=== PATIENT | male | born 1980 | race Caucasian/White ===

== ENCOUNTER 2019-09-14 23:29 | Emergency (ER) | payer BC ==
[2019-09-14] MEDS ORDERED: DUONEB 0.5-3 MG/3 ml Neb IH ONE (23:30)
[2019-09-14] MEDS ORDERED: solu-MEDROL 125 MG IV ONE (23:53)
--- NOTE | 2019-09-14 23:54 | ERPHSYRPT ---
- History of Present Illness Time Seen by Provider: 09/14/19 23:40 Source: patient, family Patient Subjective Stated Complaint: Patient states " I have not been feeling well for couple of days." States around 1700 he became very SOB. Patient states he tried to do albuterol SVN tx but it didnt help. Patient states " I have been doing my SVN treatments about every hour to two hours and it just not getting any better". Triage Nursing Assessment: Patient arrived to ED per self. Gait steady. Patient able to answer questions appropriatley. Patient alert and orientated times 4. Lungs A/P throughout wheezy. Patient doing pursed lip breathing. Cap refill less than 3 seconds. No S/S of cynosis. Patient 02 sat upon arrival 98% room air. Patient denies chest pain. Patient denies pain or discomfort. Physician History: 39-year-old white male with history of asthma who presents with cough and wheezing and shortness of breath. Patient and his family have had similar symptoms over the last few weeks. Approximately 2 to 3 weeks ago patient completed steroid and antibiotic therapy. Symptoms recurred 2 days ago. Today , his symptoms were worsening. There is no known specific exposure to any allergens that he is aware of. Patient denies fever, he denies chest pain, patient does not smoke and he has no known cardiac history.. Room air oxygenation is 98%. Timing/Duration: day(s) (2) Activities at Onset: activity Severity of Dyspnea-Max: moderate Severity of Dyspnea-Current: moderate Possible Cause: occasional episodes Modifying Factors: Improves With: activity, coughing Associated Symptoms: cough, wheezing, No anxiety Allergies/Adverse Reactions: No Known Drug Allergies Allergy (Verified 09/14/19 23:48) Home Medications: Albuterol Sulfate 2 mg IH TID PRN 06/17/13 [History] Hx Tetanus, Diphtheria Vaccination/Date Given: Yes Hx Influenza Vaccination/Date Given: No Hx Pneumococcal Vaccination/Date Given: No Immunizations Up to Date: Yes - Review of Systems Constitutional: No Symptoms Eyes: No Symptoms Ears, Nose, & Throat: No Symptoms Respiratory: Cough, Dyspnea, Wheezing Cardiac: No Symptoms, No Chest Pain Abdominal/Gastrointestinal: No Symptoms Genitourinary Symptoms: No Symptoms Musculoskeletal: No Symptoms Skin: No Symptoms Neurological: No Symptoms Psychological: No Symptoms Endocrine: No Symptoms Hematologic/Lymphatic: No Symptoms Immunological/Allergic: No Symptoms All Other Systems: Reviewed and Negative - Past Medical History Pertinent Past Medical History: Yes Neurological History: No Pertinent History ENT History: No Pertinent History Cardiac History: No Pertinent History Respiratory History: Asthma, Other Endocrine Medical History: No Pertinent History Musculoskeletal History: No Pertinent History GI Medical History: No Pertinent History History: No Pertinent History Psycho-Social History: No Pertinent History Male Reproductive Disorders: No Pertinent History Other Medical History: previuos MRSA - Past Surgical History Past Surgical History: No Neuro Surgical History: No Pertinent History Cardiac: No Pertinent History Respiratory: No Pertinent History Gastrointestinal: No Pertinent History Genitourinary: No Pertinent History Musculoskeletal: No Pertinent History Male Surgical History: No Pertinent History - Social History Smoking Status: Never smoker Exposure to second hand smoke: Yes Alcohol Use: Socially Drug Use: none Patient Lives Alone: No Significant Family History: no pertinent family hx, cancer (pancreatic: father) - Nursing Vital Signs Nursing Vital Signs: Initial Vital Signs Pulse Rate 117 H 09/14/19 23:30 Respiratory Rate 20 09/14/19 23:30 Pain Scale Pain Intensity 0 - Physical Exam General Appearance: mild distress, alert, anxiety Eye Exam: PERRL/EOMI, eyes nml inspection Ears, Nose, Throat Exam: hearing grossly normal, normal pharynx Neck Exam: normal inspection, non-tender, supple, full range of motion Respiratory Exam: airway intact, wheezing, No chest tenderness, No respiratory distress, No diminished breath sounds, No accessory muscle use, No rhonchi, No stridor Cardiovascular/Chest Exam: tachycardia Abdominal/Gastrointestinal Exam: soft, normal bowel sounds, No tenderness Rectal Exam: not done Extremity Exam: non-tender, normal range of motion, normal inspection Neurologic Exam: alert, oriented x 3, cooperative, golf cart maker II-XII nml as tested Skin Exam: normal color, warm, dry Lymphatic Exam: No adenopathy SpO2 Interpretation: normal SpO2: 99 O2 Delivery: Room Air - Course Nursing assessment & vital signs reviewed: Yes EKG Interpreted by Me: RATE (80), Sinus Rhythm, NORMAL AXIS, NORMAL INTERVALS, NORMAL QRS, Other (No comparison EKG) Ordered Tests: Active Orders 24 hr Category Date Time Status Lining Inserter STAT Care 09/14/19 23:54 Active EKG-ER Only STAT Care 09/14/19 23:53 Active IV Insertion STAT Care 09/14/19 23:53 Active Pulse Oximetry (ED) STAT Care 09/14/19 23:53 Active CHEST 1 VIEW (PORTABLE) Stat Exams 09/15/19 00:19 Taken CBC W DIFF Stat Lab 09/15/19 23:53 Completed CMP Stat Lab 09/14/19 23:53 Completed Lactic Acid Stat Lab 09/14/19 23:53 Completed NT PRO BNP Stat Lab 09/14/19 23:53 Completed TROPONIN Q3H Lab 09/14/19 23:53 Completed TROPONIN Q3H Lab 09/15/19 02:54 Ordered TROPONIN Q3H Lab 09/15/19 05:54 Ordered TROPONIN Q3H Lab 09/15/19 08:54 Ordered TROPONIN Q3H Lab 09/15/19 11:54 Ordered Peak Expiratory Flow Rate ONCE RT 09/14/19 23:43 Completed Respiratory Therapy Assessment UD RT 09/14/19 23:42 Completed Respiratory Therapy Assessment UD RT 09/15/19 01:05 Completed Medication Summary Discontinued Medications Generic Name Dose Route Start Last Admin Trade Name Freq PRN Reason Stop Dose Admin Albuterol Sulfate Confirm 09/15/19 00:17 Proventil 2.5 Mg/3 Ml Neb Administered 09/15/19 00:18 Dose 2.5 mg IH .STK-MED ONE Albuterol Sulfate 2.5 mg 09/15/19 00:15 Proventil 2.5 Mg/3 Ml Neb IH 09/15/19 00:16 STAT ONE Albuterol/Ipratropium 3 ml 09/14/19 23:30 09/14/19 23:30 Duoneb 0.5-3 Mg/3 Ml Neb IH 09/14/19 23:31 3 ml STAT ONE Administration Benzonatate 200 mg 09/15/19 00:27 Tessalon Perles 100 Mg PO 09/15/19 00:28 STAT ONE Methylprednisolone Sodium Succinate 125 mg 09/14/19 23:53 09/15/19 00:13 Solu-Medrol 125 Mg IV 09/14/19 23:54 125 mg STAT ONE Administration Methylprednisolone Sodium Succinate Confirm 09/15/19 00:10 Solu-Medrol 125 Mg Administered 09/15/19 00:11 Dose 125 mg .ROUTE .STK-MED ONE Methylprednisolone Sodium Succinate 80 mg 09/15/19 01:05 Solu-Medrol 125 Mg IV 09/15/19 01:06 STAT ONE Lab/Rad Data: Laboratory Result Diagrams 09/15/19 23:53 09/14/19 23:53 Laboratory Results 09/15/19 09/15/19 09/14/19 Range/Units 23:53 00:10 23:53 WBC 7.4 (4.0-10.5) K/mm3 RBC 4.17 (4.1-5.6) M/mm3 Hgb 13.6 (12.5-18.0) gm/dl Hct 39.1 L (42-50) % MCV 93.8 (78-100) fl MCH 32.6 H (26-32) pg MCHC 34.8 (32-36) g/dl RDW 11.5 (11.5-14.0) % Plt Count 310 (150-450) K/mm3 MPV 9.8 (7.5-11.0) fl Gran % 56.8 (36.0-66.0) % Eos # (Auto) 0.69 H (0-0.5) Absolute Lymphs (auto) 1.58 (1.0-4.6) Absolute Monos (auto) 0.89 (0.0-1.3) Lymphocytes % 21.4 L (24.0-44.0) % Monocytes % 12.0 (0.0-12.0) % Eosinophils % 9.3 H (0.00-5.0) % Basophils % 0.5 (0.0-0.4) % Absolute Granulocytes 4.19 (1.4-6.9) Basophils # 0.04 (0-0.4) Sodium (137-145) mmol/L Potassium (3.5-5.1) mmol/L Chloride (98-107) mmol/L Carbon Dioxide (22-30) mmol/L Anion Gap (5-15) MEQ/L BUN (9-20) mg/dL Creatinine (0.66-1.25) mg/dL Estimated GFR ML/MIN Glucose (74-106) mg/dL Lactic Acid 1.3 (0.4-2.0) Calcium (8.4-10.2) mg/dL Total Bilirubin (0.2-1.3) mg/dL AST (17-59) U/L ALT (0-50) U/L Alkaline Phosphatase (38-126) U/L Troponin I (0.000-0.034) ng/mL NT-Pro-B Natriuret Pep (0-450) pg/mL Serum Total Protein (6.3-8.2) g/dL Albumin (3.5-5.0) g/dL Influenza Type A Ag NEGATIVE (NEGATIVE) Influenza Type B Ag NEGATIVE (NEGATIVE) RSV (PCR) NEGATIVE (Negative) 09/14/19 09/14/19 Range/Units 23:53 23:53 WBC (4.0-10.5) K/mm3 RBC (4.1-5.6) M/mm3 Hgb (12.5-18.0) gm/dl Hct (42-50) % MCV (78-100) fl MCH (26-32) pg MCHC (32-36) g/dl RDW (11.5-14.0) % Plt Count (150-450) K/mm3 MPV (7.5-11.0) fl Gran % (36.0-66.0) % Eos # (Auto) (0-0.5) Absolute Lymphs (auto) (1.0-4.6) Absolute Monos (auto) (0.0-1.3) Lymphocytes % (24.0-44.0) % Monocytes % (0.0-12.0) % Eosinophils % (0.00-5.0) % Basophils % (0.0-0.4) % Absolute Granulocytes (1.4-6.9) Basophils # (0-0.4) Sodium 140 (137-145) mmol/L Potassium 3.7 (3.5-5.1) mmol/L Chloride 106 (98-107) mmol/L Carbon Dioxide 24 (22-30) mmol/L Anion Gap 14.4 (5-15) MEQ/L BUN 15 (9-20) mg/dL Creatinine 0.86 (0.66-1.25) mg/dL Estimated GFR > 60.0 ML/MIN Glucose 90 (74-106) mg/dL Lactic Acid (0.4-2.0) Calcium 9.2 (8.4-10.2) mg/dL Total Bilirubin 0.90 (0.2-1.3) mg/dL AST 31 (17-59) U/L ALT 38 (0-50) U/L Alkaline Phosphatase 68 (38-126) U/L Troponin I < 0.012 (0.000-0.034) ng/mL NT-Pro-B Natriuret Pep 116 (0-450) pg/mL Serum Total Protein 7.0 (6.3-8.2) g/dL Albumin 3.9 (3.5-5.0) g/dL Influenza Type A Ag (NEGATIVE) Influenza Type B Ag (NEGATIVE) RSV (PCR) (Negative) - Progress Progress: improved, re-examined Air Movement: good Progress Note: 09/15/19 01:17 The patient's chest x-ray reveals no acute process , Patient states he is feeling much better. His room air oxygenation is now 96 to 98%. His heart rate is down in the low 90s. Respiratory rate is approximately 14-16. Patient states he is ready to go home 09/15/19 01:21 Patient desires a prescription for more steroids and for Tessalon Perles Blood Culture(s) Obtained: No Antibiotics given: No Counseled pt/family regarding: lab results, diagnosis, need for follow-up, rad results - Departure Departure Disposition: Home Clinical Impression: Asthmatic bronchitis Condition: Stable Critical Care Time: No Referrals: CINDY SIU [ACTIVE STAFF] - Additional Instructions: Drink plenty of fluids. Take medications as prescribed. Follow-up with your primary care physician as needed Prescriptions: Benzonatate [Tessalon Perle] 200 mg PO TID #12 capsule Prednisone 10 mg [Deltasone 10 mg] 10 mg PO TID #12 tablet
[2019-09-15] MEDS ORDERED: solu-MEDROL 125 MG ONE ×2 (00:10→01:44)
[2019-09-15] MEDS ORDERED: PROVENTIL 2.5 MG/3 ML NEB IH ONE ×2 (00:15→00:17)
[2019-09-15 00:18] LABS: Absolute Neutrophil Ct (ANC) 4.19 (1.4-6.9); BASOPHIL % 0.5 % (0.0-0.4); Basophil (Absolute #) 0.04 (0-0.4); Eosinophil % 9.3 % (0.00-5.0); Eosinophil (Absolute #) 0.69 (0-0.5); Hematocrit 39.1 % (42-50); Hemoglobin 13.6 gm/dl (12.5-18.0); Lymphocyte (Absolute #) 1.58 (1.0-4.6); Lymphocytes % 21.4 % (24.0-44.0); Mean Cell Volume 93.8 fl (78-100); Mean Corpuscular Hemoglobin 32.6 pg (26-32); Mean Corpuscular Hgb Concent. 34.8 g/dl (32-36); Mean Platelet Volume 9.8 fl (7.5-11.0); Monocyte (Absolute #) 0.89 (0.0-1.3); Neutrophil % 56.8 % (36.0-66.0); Platelet Count 310 K/mm3 (150-450); Red Blood Count 4.17 M/mm3 (4.1-5.6); Red Cell Distribution Width 11.5 % (11.5-14.0); White Blood Count 7.4 K/mm3 (4.0-10.5)
[2019-09-15] MEDS ORDERED: Tessalon Perles 100 MG PO ONE ×3 (00:27→01:44)
[2019-09-15 00:48] LABS: ALBUMIN 3.9 g/dL (3.5-5.0); ALKALINE PHOSPHATASE 68 U/L (38-126); ANION GAP 14.4 MEQ/L (5-15); BLOOD UREA NITROGEN 15 mg/dL (9-20); CHLORIDE 106 mmol/L (98-107); Calcium 9.2 mg/dL (8.4-10.2); Carbon Dioxide 24 mmol/L (22-30); Creatinine 1 0.86 mg/dL (0.66-1.25); Glucose 90 mg/dL (74-106); NT PRO BNP 116 pg/mL (0-450); Potassium 3.7 mmol/L (3.5-5.1); SGOT/AST 31 U/L (17-59); SGPT/ALT 38 U/L (0-50); SODIUM 140 mmol/L (137-145)
[2019-09-15 00:49] LABS: INFLUENZA A NEGATIVE (NEGATIVE); INFLUENZA B NEGATIVE (NEGATIVE); RESPIRATORY SYNCTIAL VIRUS NEGATIVE (Negative)
[2019-09-15] MEDS ORDERED: solu-MEDROL 125 MG IV ONE (01:05)
[2019-09-15] MEDS ORDERED: DUONEB 0.5-3 MG/3 ml Neb IH ONE (02:12)
[2019-09-15 02:22] VITALS: BP 117/75; PULSE 100; O2SAT 97
--- NOTE | 2019-09-15 08:46 | XRAY ---
Indication: Short of breath. Comparison: August 13, 2014. Portable chest again demonstrates normal heart and lungs. Bony thorax intact with stable dextrorotoscoliosis. No new/acute findings.
== END 2019-09-15 02:22 | disposition home or self-care (01) ==
LOC: ED 23:29
DX: J45.909 Unspecified asthma, uncomplicated (principal)
CPT/HCPCS: 36000; 36415; 71045; 80053; 83605; 83880; 84484; 85025; 87631; 93005; 93041; 94150; 94640; 94760; 96374; 99284; J2930; J7609; A9270-GY

== ENCOUNTER 2019-09-15 07:41 | Observation (INO) | payer BC ==
[2019-09-15] MEDS ORDERED: Magnesium Sulfate 1 GM/2 ML VIAL IV STA (07:49)
[2019-09-15] MEDS ORDERED: DUONEB 0.5-3 MG/3 ml Neb IH ONE ×4 (07:49→10:37)
[2019-09-15] MEDS ORDERED: Magnesium Sulfate 1 GM/2 ML VIAL ONE (07:58)
[2019-09-15] MEDS ORDERED: Magnesium 1 Gm / 100 Ml D5W*** 100 ML IV ONE (08:01)
[2019-09-15] MEDS: Magnesium 1 Gm / 100 Ml D5W*** 100 ML IV SCH ×2 (08:04→08:36)
[2019-09-15 08:08] LABS: A-aADO2 35; ABG HEMOGLOBIN 14.9; ABG SITE RIGHT RADIAL; ALLEN TEST OK? YES; ARTERIAL BLD GAS O2 SATURATION 97.2 % (95-100); ARTERIAL BLOOD GAS BASE EXCESS -2.1 (-2.0-2.0); ARTERIAL BLOOD GAS FIO2 21 %; ARTERIAL BLOOD GAS PCO2 30 mmHg (35-45); ARTERIAL BLOOD GAS PO2 77 mmHg (75-100); ARTERIAL BLOOD GAS pH 7.45 (7.35-7.45); CARBOXYHEMOGLOBIN 0.8 % THgb (0.0-6.9); HCO3- 20.9 (22-28); Methhemoglobin 0.4 % (1.4-1.5); paO2 pAO1 0.69
[2019-09-15] MEDS ORDERED: Sodium Chloride 0.9% 1000 ML 1,000 ML IV STA (08:12)
--- NOTE | 2019-09-15 08:15 | ERPHSYRPT ---
- History of Present Illness Source: patient Exam Limitations: no limitations Patient Subjective Stated Complaint: Pt was here in this ER during the night due to difficulties breathing and was given treatments and had scans, scans came back clear, pt was discharged but continues to not be able to breath Triage Nursing Assessment: Pt walked into the ER, tachycardic, pt is wheezy throughout, hx of asthma, skin N/W/D, Physician History: Patient is a 39-year-old male who presents to our ED with complaints of shortness of breath. He has a history of asthma. He was in our ED approximately 6 hours ago for the same complaint. Patient was treated for asthma exacerbation. Patient improved and was subsequently discharged. Patient is here as his symptoms have progressed. Patient is breathing is labored. No chest pain. No history of PE DVT. No calf pain. Symptoms are progressive. Symptoms are moderate in intensity. Exertional worsening shortness of breath. Patient voices no other complaints at this time. Timing/Duration: today Cough Quality/Degree: mild, dry cough Possible Cause: chronic episodes, illness exposure Modifying Factors: Improves With: activity, albuterol nebulizer, exertion, oxygen Associated Symptoms: cough, shortness of breath, wheezing, No facial pain, No lightheadedness, No muscle aches International travel in last 2 weeks: No Allergies/Adverse Reactions: No Known Drug Allergies Allergy (Verified 09/15/19 07:53) Home Medications: No Reportable Medications [No Reported Medications] 09/15/19 [History] Hx Tetanus, Diphtheria Vaccination/Date Given: Yes Hx Influenza Vaccination/Date Given: No Hx Pneumococcal Vaccination/Date Given: No - Review of Systems Constitutional: No Fever, No Chills Eyes: No Symptoms, No Photophobia Ears, Nose, & Throat: No Symptoms, No Epistaxis, No Throat Pain Respiratory: Cough, Dyspnea Cardiac: No Chest Pain, No Edema, No Syncope Abdominal/Gastrointestinal: No Abdominal Pain, No Nausea, No Vomiting, No Diarrhea Genitourinary Symptoms: No Dysuria Musculoskeletal: No Back Pain, No Neck Pain Skin: No Rash Neurological: No Dizziness, No Focal Weakness, No Sensory Changes Psychological: No Symptoms Endocrine: No Symptoms All Other Systems: Reviewed and Negative - Past Medical History Pertinent Past Medical History: Yes Neurological History: No Pertinent History ENT History: No Pertinent History Cardiac History: No Pertinent History Respiratory History: Asthma, Other Endocrine Medical History: No Pertinent History Musculoskeletal History: No Pertinent History GI Medical History: No Pertinent History History: No Pertinent History Psycho-Social History: No Pertinent History Male Reproductive Disorders: No Pertinent History Other Medical History: previous MRSA - Past Surgical History Past Surgical History: No Neuro Surgical History: No Pertinent History Cardiac: No Pertinent History Respiratory: No Pertinent History Gastrointestinal: No Pertinent History Genitourinary: No Pertinent History Musculoskeletal: No Pertinent History Male Surgical History: No Pertinent History - Social History Smoking Status: Never smoker Exposure to second hand smoke: Yes Alcohol Use: Socially Drug Use: none Patient Lives Alone: No Significant Family History: no pertinent family hx, cancer (pancreatic: father) - Nursing Vital Signs Nursing Vital Signs: Initial Vital Signs Respiratory Rate 18 09/15/19 07:41 O2 Sat by Pulse Oximetry 95 09/15/19 07:41 Pain Scale Pain Intensity 0 - Physical Exam SpO2: 96 - Course Nursing assessment & vital signs reviewed: Yes EKG Interpreted by Me: RATE, NORMAL AXIS, NORMAL INTERVALS - Radiology Exams Chest X-ray Interpretation: Interpreted by me, Negative, No Pneumonia, No Pneumothorax , No Infiltrates, Nml Mediastinum, Displaced Fracture, Pneumonia Ordered Tests: Active Orders 24 hr Category Date Time Status Bagging Machine Operator STAT Care 09/15/19 07:52 Active EKG-ER Only STAT Care 09/15/19 08:20 Active IV Insertion STAT Care 09/15/19 07:51 Active Pulse Oximetry (ED) STAT Care 09/15/19 07:51 Active CHEST 1 VIEW (PORTABLE) Stat Exams 09/15/19 08:44 Completed ARTERIAL BLOOD GASES Stat Lab 09/15/19 08:05 Completed BLOOD CULTURE Stat Lab 09/15/19 08:10 Received CBC W DIFF Stat Lab 09/15/19 08:00 Completed CMP Stat Lab 09/15/19 08:00 Completed D-DIMER QUANTITATIVE Stat Lab 09/15/19 08:00 Completed Lactic Acid Stat Lab 09/15/19 08:11 Completed TROPONIN Q3H Lab 09/15/19 08:00 Completed TROPONIN Q3H Lab 09/15/19 11:00 Ordered TROPONIN Q3H Lab 09/15/19 14:00 Ordered TROPONIN Q3H Lab 09/15/19 17:00 Ordered TROPONIN Q3H Lab 09/15/19 20:00 Ordered UA W/RFX UR CULTURE Stat Lab 09/15/19 09:45 Ordered BiPap/CPAP ROUTINE RT 09/15/19 07:51 Active Peak Expiratory Flow Rate ONCE RT 09/15/19 08:18 Active Respiratory Therapy Assessment DAILY RT 09/15/19 08:18 Active Transfer Order Routine Transfer 09/15/19 Ordered Medication Summary Generic Name Dose Route Start Last Admin Trade Name Elpidio PRN Reason Stop Dose Admin Magnesium Sulfate/Dextrose 100 mls @ 100 mls/hr 09/15/19 08:15 09/15/19 08:36 Magnesium 1 Gm / 100 Ml D5w IV 09/15/19 10:14 100 mls/hr Q1H JASMINE Administration Discontinued Medications Generic Name Dose Route Start Last Admin Trade Name Elpidio PRN Reason Stop Dose Admin Albuterol/Ipratropium 3 ml 09/15/19 07:49 09/15/19 08:05 Duoneb 0.5-3 Mg/3 Ml Neb IH 09/15/19 07:50 3 ml STAT ONE Administration Albuterol/Ipratropium Confirm 09/15/19 07:56 Duoneb 0.5-3 Mg/3 Ml Neb Administered 09/15/19 07:57 Dose 3 ml IH .STK-MED ONE Magnesium Sulfate/Dextrose Confirm 09/15/19 08:01 Magnesium 1 Gm / 100 Ml D5w Administered 09/15/19 08:02 Dose 100 mls @ ud IV .STK-MED ONE Sodium Chloride 1,000 mls @ 999 mls/hr 09/15/19 08:12 09/15/19 09:17 Sodium Chloride 0.9% 1000 Ml IV 09/15/19 09:12 999 mls/hr .Q1H1M STA Administration Sodium Chloride Confirm 09/15/19 09:16 Sodium Chloride 0.9% 1000 Ml Administered 09/15/19 09:17 Dose 1,000 mls @ ud .ROUTE .STK-MED ONE Magnesium Sulfate 2 gm 09/15/19 07:49 09/15/19 08:04 Magnesium Sulfate 1 Gm/2 Ml Vial IV 09/15/19 07:50 Not Given ONCE STA Magnesium Sulfate Confirm 09/15/19 07:58 Magnesium Sulfate 1 Gm/2 Ml Vial Administered 09/15/19 07:59 Dose 2 gm .ROUTE .STK-MED ONE Lab/Rad Data: Laboratory Result Diagrams 09/15/19 08:00 09/15/19 08:00 Laboratory Results 09/15/19 09/15/19 09/15/19 Range/Units 08:11 08:05 08:00 WBC (4.0-10.5) K/mm3 RBC (4.1-5.6) M/mm3 Hgb (12.5-18.0) gm/dl Hct (42-50) % MCV (78-100) fl MCH (26-32) pg MCHC (32-36) g/dl RDW (11.5-14.0) % Plt Count (150-450) K/mm3 MPV (7.5-11.0) fl Gran % (36.0-66.0) % Eos # (Auto) (0-0.5) Absolute Lymphs (auto) (1.0-4.6) Absolute Monos (auto) (0.0-1.3) Lymphocytes % (24.0-44.0) % Monocytes % (0.0-12.0) % Eosinophils % (0.00-5.0) % Basophils % (0.0-0.4) % Absolute Granulocytes (1.4-6.9) Basophils # (0-0.4) D-Dimer (215-500) ng/mL Puncture Site RIGHT RADIAL pCO2 30 L (35-45) mmHg pO2 77 (75-100) mmHg Base Excess -2.1 L (-2.0-2.0) O2 Saturation 96.0 (94-100) g/dF ABG pH 7.45 (7.35-7.45) ABG HCO3 20.9 L (22-28) ABG O2 Sat (Measured) 97.2 (95-100) % Artis Test YES A-a Gradient 35 a/A Ratio 0.69 Hemoglobin 14.9 Carboxyhemoglobin 0.8 (0.0-6.9) % THgb Methemoglobin 0.4 L (1.4-1.5) % Temperature 37.0 C POC O2 Flow Rate 21 % Sodium (137-145) mmol/L Potassium 4.0 (3.5-5.1) mmol/L Chloride (98-107) mmol/L Carbon Dioxide (22-30) mmol/L Anion Gap (5-15) MEQ/L BUN (9-20) mg/dL Creatinine (0.66-1.25) mg/dL Estimated GFR ML/MIN Glucose (74-106) mg/dL Lactic Acid 3.7 H (0.4-2.0) Calcium (8.4-10.2) mg/dL Total Bilirubin (0.2-1.3) mg/dL AST (17-59) U/L ALT (0-50) U/L Alkaline Phosphatase (38-126) U/L Troponin I < 0.012 (0.000-0.034) ng/mL Serum Total Protein (6.3-8.2) g/dL Albumin (3.5-5.0) g/dL 09/15/19 09/15/19 09/15/19 Range/Units 08:00 08:00 08:00 WBC 6.3 (4.0-10.5) K/mm3 RBC 4.38 (4.1-5.6) M/mm3 Hgb 14.4 (12.5-18.0) gm/dl Hct 40.9 L (42-50) % MCV 93.4 (78-100) fl MCH 32.9 H (26-32) pg MCHC 35.2 (32-36) g/dl RDW 11.6 (11.5-14.0) % Plt Count 372 (150-450) K/mm3 MPV 9.8 (7.5-11.0) fl Gran % 86.5 H (36.0-66.0) % Eos # (Auto) 0.04 (0-0.5) Absolute Lymphs (auto) 0.67 L (1.0-4.6) Absolute Monos (auto) 0.13 (0.0-1.3) Lymphocytes % 10.6 L (24.0-44.0) % Monocytes % 2.1 (0.0-12.0) % Eosinophils % 0.6 (0.00-5.0) % Basophils % 0.2 (0.0-0.4) % Absolute Granulocytes 5.47 (1.4-6.9) Basophils # 0.01 (0-0.4) D-Dimer 444 (215-500) ng/mL Puncture Site pCO2 (35-45) mmHg pO2 (75-100) mmHg Base Excess (-2.0-2.0) O2 Saturation (94-100) g/dF ABG pH (7.35-7.45) ABG HCO3 (22-28) ABG O2 Sat (Measured) (95-100) % Artis Test A-a Gradient a/A Ratio Hemoglobin Carboxyhemoglobin (0.0-6.9) % THgb Methemoglobin (1.4-1.5) % Temperature C POC O2 Flow Rate % Sodium 142 (137-145) mmol/L Potassium 4.0 (3.5-5.1) mmol/L Chloride 107 (98-107) mmol/L Carbon Dioxide 21 L (22-30) mmol/L Anion Gap 18 H (5-15) MEQ/L BUN 12 (9-20) mg/dL Creatinine 0.77 (0.66-1.25) mg/dL Estimated GFR > 60.0 ML/MIN Glucose 178 H (74-106) mg/dL Lactic Acid (0.4-2.0) Calcium 9.6 (8.4-10.2) mg/dL Total Bilirubin 0.90 (0.2-1.3) mg/dL AST 35 (17-59) U/L ALT 44 (0-50) U/L Alkaline Phosphatase 79 (38-126) U/L Troponin I (0.000-0.034) ng/mL Serum Total Protein 7.7 (6.3-8.2) g/dL Albumin 4.4 (3.5-5.0) g/dL - Progress Air Movement: good Progress Note: 09/15/19 08:39 Differential diagnosis includes asthma exacerbation, COPD exacerbation, pulmonary embolism, pneumonia, acute coronary syndrome, pneumothorax Patient reassessed. Wheezing improved. Patient moving air much easier. Patient states he feels better. We assess patient for possible PE. D-dimer negative. Homans sign negative. No pneumonia observed on chest x-ray. Lactic acid elevated. Repeat lactic acid pending. 09/15/19 08:45 09/15/19 08:57 Patient reassessed. He continues to feel better. BiPAP required to assist with respiration. No indication for intubation at this time. 09/15/19 09:[address] Smith who accepts admission to observation. Plan of care discussed with patient. He agrees admission at [facility] for further evaluation and treatment. Blood Culture(s) Obtained: Yes Antibiotics given: No Discussed with : Krystal (Dr. Smith will accept admission to observation. ) Will see patient in: hospital (observation) Counseled pt/family regarding: lab results, diagnosis, rad results - Departure Departure Disposition: Observation Clinical Impression: Respiratory distress, Lactic acidosis, Asthmatic bronchitis, Asthma Condition: Stable Critical Care Time: Yes Critical Care Time(excluding separately billable procedures): Critical 30-74 mins Referrals: PAT SMITH [Primary Care Provider] -
[2019-09-15 08:23] LABS: Absolute Neutrophil Ct (ANC) 5.47 (1.4-6.9); BASOPHIL % 0.2 % (0.0-0.4); Basophil (Absolute #) 0.01 (0-0.4); Eosinophil % 0.6 % (0.00-5.0); Eosinophil (Absolute #) 0.04 (0-0.5); Hematocrit 40.9 % (42-50); Hemoglobin 14.4 gm/dl (12.5-18.0); Lymphocyte (Absolute #) 0.67 (1.0-4.6); Lymphocytes % 10.6 % (24.0-44.0); Mean Cell Volume 93.4 fl (78-100); Mean Corpuscular Hemoglobin 32.9 pg (26-32); Mean Corpuscular Hgb Concent. 35.2 g/dl (32-36); Mean Platelet Volume 9.8 fl (7.5-11.0); Monocyte (Absolute #) 0.13 (0.0-1.3); Monocytes % 2.1 % (0.0-12.0); Neutrophil % 86.5 % (36.0-66.0); Platelet Count 372 K/mm3 (150-450); Red Blood Count 4.38 M/mm3 (4.1-5.6); Red Cell Distribution Width 11.6 % (11.5-14.0); White Blood Count 6.3 K/mm3 (4.0-10.5)
[2019-09-15 08:28] LABS: ALBUMIN 4.4 g/dL (3.5-5.0); ALKALINE PHOSPHATASE 79 U/L (38-126); CHLORIDE 107 mmol/L (98-107); Carbon Dioxide 21 mmol/L (22-30); Creatinine 1 0.77 mg/dL (0.66-1.25); Glucose 178 mg/dL (74-106); SGOT/AST 35 U/L (17-59); Total Protein 7.7 g/dL (6.3-8.2)
[2019-09-15 08:29] LABS: Calcium 9.6 mg/dL (8.4-10.2)
[2019-09-15 08:30] LABS: SODIUM 142 mmol/L (137-145)
[2019-09-15 08:33] LABS: ANION GAP 18 MEQ/L (5-15)
[2019-09-15 08:34] LABS: BLOOD UREA NITROGEN 12 mg/dL (9-20)
[2019-09-15 08:36] LABS: SGPT/ALT 44 U/L (0-50)
--- NOTE | 2019-09-15 09:09 | XRAY ---
Indication: Short of breath. Comparison: Taken earlier in the day. Portable chest continues to demonstrate normal heart and lungs with incidental dextrorotoscoliosis. No new/acute findings.
[2019-09-15] MEDS ORDERED: Sodium Chloride 0.9% 1000 ML 1,000 ML ONE (09:16)
[2019-09-15 10:54] LABS: Appearance CLEAR (CLEAR); Bilirubin NEGATIVE (NEGATIVE); Blood NEGATIVE Ery/ul (0-5); Glucose >=500 mg/dL (NEGATIVE); Ketones TRACE (NEGATIVE); Leukocyte Esterase NEGATIVE (NEGATIVE); Mucus SLIGHT /HPF (NEGATIVE); Nitrite NEGATIVE (NEGATIVE); Protein,Urine Dip NEGATIVE (Negative); Specific Gravity 1.013 (1.005-1.025); Urobilinogen NEGATIVE mg/dL (0-1)
[2019-09-15] MEDS: DUONEB 0.5-3 MG/3 ml Neb IH SCH ×4 (14:18→22:43)
[2019-09-15] MEDS ORDERED: THEOPHYLLINE ER 24HR PO SCH (17:30)
[2019-09-15] MEDS: solu-MEDROL 125 MG IV SCH ×2 (17:42→23:55)
[2019-09-15] MEDS ORDERED: Singulair 10 MG PO SCH (17:45)
[2019-09-15] MEDS: PROVENTIL 2.5 MG/3 ML NEB IH PRN (22:54)
[2019-09-15] MEDS ORDERED: PROVENTIL 2.5 MG/3 ML NEB IH PRN (22:56)
[2019-09-15] MEDS: Tussionex Pennkinetic Susp PO PRN (23:56)
[2019-09-16] MEDS: PROVENTIL 2.5 MG/3 ML NEB IH PRN (01:00)
[2019-09-16] MEDS: DUONEB 0.5-3 MG/3 ml Neb IH SCH ×6 (03:00→22:28)
[2019-09-16] MEDS ORDERED: solu-MEDROL 125 MG ONE (06:04)
[2019-09-16] MEDS: solu-MEDROL 125 MG IV SCH ×3 (06:12→17:34)
--- NOTE | 2019-09-16 09:35 | HP ---
CHIEF COMPLAINT: Asthma exacerbation. HISTORY OF PRESENT ILLNESS: The patient is a 39 year-old white male who presented to the hospital with extreme shortness of breath. He reports that he has a nebulizer machine at home but it has been broken. He has been healthy over the past three years until this problem had developed. He reports his children has had influenza in the last week or so and this affected him to the point where he started to have asthma issues again. MEDICATIONS: He is on no usual home medications at this time. ALLERGIES: NKDA. PHYSICAL EXAMINATION: His vital signs on admission showed respiratory rate 18. O2 saturation 95%. His initial temperature 96.0F, pulse 116, blood pressure 116/81. HEENT: Normocephalic, atraumatic. Pupils equal round reactive to light. Extraocular movements intact. Oropharynx is pink and moist. NECK: Supple without lymphadenopathy, thyromegaly or JVD. CHEST: Essentially clear to my examination at this time. HEART: Regular rate and rhythm. ABDOMEN: Soft. EXTREMITIES: Without cyanosis, clubbing or edema. NEUROLOGIC: The patient is alert and oriented x3. LAB DATA AND TESTS: The patient's laboratory studies revealed lactic acid initially at 3.7. D-dimer 444. His white count was 6,300, hemoglobin 14.4, PLT count 372,000. There did appear to be a mild left shift with 86.5% granulocytes. Sugar 178, BUN 12, creatinine 0.77. Electrolytes were normal. Liver enzymes were normal. ABG showed a pH of 7.45, pCO2 of 30 and pO2 of 77. Troponin was less than 0.012. UA was essentially normal other than glucose greater than 500. Chest x-ray was essentially normal. ASSESSMENT: A patient with exacerbation of asthma. He had been seen in the emergency room initially at approximately 0200 hours in the morning and sent home but returned due to his increasing shortness of breath. He was treated with nebulizer treatments and subsequently admitted to the hospital for nebulizer treatments. He did receive initially Solu-Medrol dose at 125 IV. He has been admitted for continued IV Solu-Medrol and nebulizer treatments PRN and close monitoring of his oxygen saturations.
[2019-09-16] MEDS ORDERED: FLUZONE QUAD 2019-2020 SYRINGE IM ONE (10:00)
[2019-09-16] MEDS: Tussionex Pennkinetic Susp PO PRN (15:17)
[2019-09-16] MEDS ORDERED: THEOPHYLLINE ER 24HR PO ONE (19:30)
[2019-09-17] MEDS: solu-MEDROL 125 MG IV SCH ×3 (00:09→13:47)
[2019-09-17] MEDS: DUONEB 0.5-3 MG/3 ml Neb IH SCH ×3 (02:46→11:05)
[2019-09-17] MEDS: Tussionex Pennkinetic Susp PO PRN (06:20)
--- NOTE | 2019-09-17 09:41 | PCM.DS ---
Discharge Summary Date of Admission: 09/15/19 11:19 Admitting Physician: PAT STOLL Primary Care Provider: PAT STOLL Allergies Allergies No Known Drug Allergies Allergy (Verified 09/15/19 07:53) Hospital Summary - Hospital Course Hospital Course: patient admitted with cough and shortness of breath, no fever, no sputum production. hx of asthma but hasn't had a bad flare for many years - Vitals & Intake/Output Vital Signs: Vital Signs Temperature 97.4 F 09/17/19 07:23 Pulse Rate 82 09/17/19 07:23 Respiratory Rate 18 09/17/19 07:23 Blood Pressure 119/69 09/17/19 07:23 O2 Sat by Pulse Oximetry 93 L 09/17/19 07:23 Intake & Output: Intake & Output 09/14/19 09/15/19 09/16/19 09/17/19 11:59 11:59 11:59 11:59 Intake Total 1500 2100 Output Total 1400 750 Balance 100 1350 Weight 70.307 kg 67 kg 66.5 kg - Lab Result Diagrams: 09/15/19 08:00 09/15/19 08:00 Micro Results-Entire Visit: Microbiology 09/15/19 08:10 Blood Culture - Preliminary Blood NO GROWTH TO DATE 09/15/19 08:00 Blood Culture - Preliminary Blood NO GROWTH TO DATE - Radiology Exams Ordered Rad Exams-Entire Visit: Radiology Procedures Category Date Time Status CHEST 1 VIEW (PORTABLE) Stat Exams 09/15/19 08:44 Completed - Procedures and Test Procedures and Tests throughout Hospitalization: Therapy Orders & Screens 09/15/19 08:18 Peak Expiratory Flow Rate ONCE Comment: Reason For Exam: Respiratory Therapy Assessment DAILY Comment: 09/15/19 14:30 Oxygen Oxymizer LPM 2 lpm Comment: Diagnosis: Asthma 09/16/19 09:02 RT Miscellaneous Order ROUTINE Comment: Physician Instructions: WEAN O2 Reason For Exam: Diagnosis: Asthma Discharge Exam General Appearance: no apparent distress, alert Respiratory Exam: normal breath sounds, lungs clear, No respiratory distress, No accessory muscle use Cardiovascular Exam: regular rate/rhythm, normal heart sounds Gastrointestinal/Abdomen Exam: soft, No tenderness, No mass Extremity Exam: normal inspection, normal range of motion Skin Exam: normal color, warm, dry Final Diagnosis/Problem List - Final Discharge Diagnosis/Problem (1) Asthmatic bronchitis Current Visit: Yes Status: Acute Assessment & Plan: patient was advised he could likely be released today and feeling much better and requesting discharge today. Code(s): J45.909 - UNSPECIFIED ASTHMA, UNCOMPLICATED - Discharge Disposition: Home, Self-Care Condition: Stable Prescriptions: New Nebulizer Accessories [Nebulizer] 1 each MC UD #1 kit Prednisone 20 mg [Deltasone 20 mg] 20 mg PO UD #18 tablet Albuterol 2.5 mg/3 ml Neb [Proventil 2.5 mg/3 ml Neb] 2.5 mg IH Q4- 6HPRN PRN #100 neb PRN Reason: Shortness Of Breath/Wheezing Hydrocod Psx/Chlor-Douglas [Tussionex Pennkinetic Susp] 5 ml PO Q12H PRN PRN #120 ml MDD 10mL PRN Reason: Cough Follow up with: PAT STOLL [Primary Care Provider] - 09/29/19 10:00 am
[2019-09-17 11:07] VITALS: O2SAT 94
[2019-09-17 11:49] VITALS: BP 113/67; PULSE 77
== END 2019-09-17 14:06 | disposition home or self-care (01) ==
LOC: ED 07:41 → MED SURG 11:19
PROVIDERS: ADMIT Family Medicine; ATTEND Family Medicine
DX: J45.901 Unspecified asthma with (acute) exacerbation (principal)
CPT/HCPCS: 80053; 81001; 82375; 82803; 83605; 84484; 85025; 85379; 87040; 93005; 93041; 93268; 94150; 94640; 94762; 96365; 99291; G0378; 36000; 36415; 36600; 71045; 90686; 94002; 94760; 99285; J2930; J3475; J7609; A9270-GY

== ENCOUNTER 2020-01-23 12:51 | Emergency (ER) | payer BC ==
--- NOTE | 2020-01-23 14:38 | XRAY ---
Indication: Low back pain. No known injury. Multiple contiguous axial images obtained through the lumbar spine. Two-dimensional sagittal and coronal reformatted images obtained. Comparison: None Axial images negative for acute fracture, suspicious bony lesions, or spinal canal stenosis. Minimal L3-L5 endplate spurring and mild L4-L5 annular disc bulge greater towards the right with subsequent right foraminal narrowing. Facets are symmetric. Sagittal and coronal reformatted images demonstrates moderate dextrorotoscoliosis centered at the thoracolumbar junction. Minimal L3-L5 disc space narrowing. No acute compression fracture or subluxation. Visualized noncontrasted soft tissues are unremarkable. Impression: 1. Dextrorotoscoliosis and L4-L5 degenerative disc disease. Outpatient MRI may yield further information if clinically warranted. 2. Remaining CT lumbar spine is negative.
--- NOTE | 2020-01-23 15:34 | ERPHSYRPT ---
- History of Present Illness Time Seen by Provider: 01/23/20 13:30 Patient Subjective Stated Complaint: back pain Triage Nursing Assessment: Patient ambulated back to ED and transferred self to bed. Patient A+O X3. Patient's skin pink, warm and dry. Patient complains of lower back pain that started hurting yesterday afternoon. Patient had been cleaning his house and sat down and started having lower back pain that shoots down his left left. Patient states pain is constant aching with intermittent sharp pain. Physician History: Patient is a 39-year-old male who was working around his house and developed low back pain which then effectively started radiating down the left leg. He denies any problems with the bowels or bladder no paresthesia no weakness. He was interested in some time off work. Method of Injury: bending, lifting Quality: radiating Back Pain Location: lumbar spine Back Pain Radiation: lower legs Severity of Pain-Max: moderate Severity of Pain-Current: moderate Allergies/Adverse Reactions: No Known Drug Allergies Allergy (Verified 01/23/20 12:59) Home Medications: Fluticasone Propion/Salmeterol [Fluticasone-Salmeterol 250-50] 1 puff IH BID [History] Hx Tetanus, Diphtheria Vaccination/Date Given: Yes Hx Influenza Vaccination/Date Given: No Hx Pneumococcal Vaccination/Date Given: No Immunizations Up to Date: Yes Travel Risk - International Travel Have you traveled outside of the country in past 3 weeks: No - Coronavirus Screening Are you exhibiting any of the following symptoms?: No Close contact with a COVID-19 positive Pt in past 14-21 Days: No - Review of Systems Constitutional: No Fever, No Chills Eyes: No Symptoms Ears, Nose, & Throat: No Symptoms Respiratory: No Cough, No Dyspnea Cardiac: No Chest Pain, No Edema, No Syncope Abdominal/Gastrointestinal: No Abdominal Pain, No Nausea, No Vomiting, No Diarrhea Genitourinary Symptoms: No Dysuria Musculoskeletal: Back Pain, No Neck Pain Skin: No Rash Neurological: No Dizziness, No Focal Weakness, No Sensory Changes Psychological: No Symptoms Endocrine: No Symptoms All Other Systems: Reviewed and Negative - Past Medical History Pertinent Past Medical History: Yes Neurological History: No Pertinent History ENT History: No Pertinent History Cardiac History: No Pertinent History Respiratory History: Asthma, Other Endocrine Medical History: No Pertinent History Musculoskeletal History: No Pertinent History GI Medical History: No Pertinent History History: No Pertinent History Psycho-Social History: No Pertinent History Male Reproductive Disorders: No Pertinent History Other Medical History: previous MRSA - Past Surgical History Past Surgical History: No Neuro Surgical History: No Pertinent History Cardiac: No Pertinent History Respiratory: No Pertinent History Gastrointestinal: No Pertinent History Genitourinary: No Pertinent History Musculoskeletal: No Pertinent History Male Surgical History: No Pertinent History - Social History Smoking Status: Never smoker Exposure to second hand smoke: No Alcohol Use: Socially Drug Use: none Patient Lives Alone: No Significant Family History: no pertinent family hx, cancer (pancreatic: father) - Nursing Vital Signs Nursing Vital Signs: Initial Vital Signs Temperature 98.0 F 01/23/20 13:01 Pulse Rate 74 01/23/20 13:01 Respiratory Rate 18 01/23/20 13:01 Blood Pressure 144/87 01/23/20 13:01 O2 Sat by Pulse Oximetry 97 01/23/20 13:01 Pain Scale Pain Intensity 9 - Physical Exam General Appearance: no apparent distress, alert Eye Exam: PERRL/EOMI, eyes nml inspection Neck Exam: normal inspection, non-tender, supple, full range of motion, No meningismus, No midline tenderness Respiratory Exam: normal breath sounds, lungs clear, No respiratory distress Cardiovascular Exam: regular rate/rhythm, normal heart sounds Gastrointestinal Exam: soft, No tenderness, No mass Back Exam: normal inspection, vertebral tenderness, decreased range of motion, other (Straight leg raising positive on the left) Extremity Exam: normal inspection, normal range of motion, No calf tenderness, No pedal edema Neurologic Exam: alert, oriented x 3, cooperative, global project manager II-XII nml as tested, normal mood/affect, nml station & gait, sensation nml, No motor deficits Skin Exam: normal color, warm, dry, No rash SpO2: 97 - Course Nursing assessment & vital signs reviewed: Yes Ordered Tests: Active Orders 24 hr Category Date Time Status LUMBAR SPINE W/O [CT] Stat Exams 01/23/20 13:23 Completed - Progress Progress: improved - Departure Departure Disposition: Home Clinical Impression: Radiculopathy Condition: Stable Critical Care Time: No Referrals: PAT STOLL [Primary Care Provider] - Instructions: Sciatica (DC) Prescriptions: Diclofenac Sodium 50 mg [Voltaren 50 mg] 50 mg PO TID 10 Days #30 tablet.ec Hydrocodone/APAP 5-325 Tab^^^ [Pony 5-325 Tablet^^^] 1 each PO Q6H 3 Days #12 tablet MDD 6
[2020-01-23 15:53] VITALS: BP 134/92; PULSE 66; O2SAT 95
== END 2020-01-23 15:50 | disposition home or self-care (01) ==
LOC: ED 12:51
DX: M54.10 Radiculopathy, site unspecified (principal); M54.5 Low back pain
CPT/HCPCS: 72131; 99283

== ENCOUNTER 2024-01-04 08:53 | Emergency (ER) | payer BC ==
[2024-01-04] MEDS ORDERED: solu-MEDROL ONE (09:21)
[2024-01-04] MEDS ORDERED: Sterile H2O 10 ml IJ ONE (09:21)
[2024-01-04] MEDS: solu-MEDROL 125 MG, Sterile H2O 10 ml 2 ML IV ONE (09:22)
[2024-01-04 09:26] VITALS: TEMP 97.7
[2024-01-04] MEDS ORDERED: DUONEB 0.5-3 MG/3 ml Neb IH ONE (09:34)
[2024-01-04 09:37] LABS: BASOPHIL % 0.3 % (0.0-0.4); Basophil (Absolute #) 0.02 x10^3/uL (0-0.4); Eosinophil % 0.7 % (0.00-5.0); Eosinophil (Absolute #) 0.05 x10^3/uL (0-0.5); Hematocrit 44.2 % (42-50); Hemoglobin 15.2 g/dL (12.5-18.0); IMMATURE GRAN # 0.01 x10^3u/L (0.00-0.03); IMMATURE GRAN % 0.1 % (0.00-0.4); Mean Corpuscular Hemoglobin 32.3 pg (26-32); Mean Corpuscular Hgb Concent. 34.4 g/dL (32-36); Mean Platelet Volume 10.3 fL (7.5-11.0); Monocyte (Absolute #) 0.88 x10^3/uL (0.0-1.3); Neutrophil % 67.9 % (36.0-66.0); Platelet Count 212 x10^3/uL (150-450); White Blood Count 7.4 x10^3/uL (4.0-10.5)
[2024-01-04] MEDS: DUONEB 0.5-3 MG/3 ml Neb IH ONE (09:37)
[2024-01-04 09:44] VITALS: O2SAT 98
[2024-01-04 09:53] LABS: ALBUMIN 4.5 g/dL (3.5-5.0); ANION GAP 15.7 MEQ/L (5-15); BILIRUBIN,TOTAL 1.2 mg/dL (0.2-1.3); Calcium 9.5 mg/dL (8.4-10.2); Creatinine 1 0.9 mg/dL (0.66-1.25); MAGNESIUM 2.1 mg/dL (1.6-2.3); Potassium 4.1 mmol/L (3.5-5.1); Total Protein 7.5 g/dL (6.3-8.2)
--- NOTE | 2024-01-04 10:40 | ERPHSYRPT ---
- History of Present Illness Time Seen by Provider: 01/04/24 09:04 Source: patient Exam Limitations: no limitations Patient Subjective Stated Complaint: SOB Triage Nursing Assessment: Patient ambulated back to ED and transferred self to bed. Patient A+O X 3. Patient's skin pink, warm and dry. Patient complains of SOB that started Thursday and has gotten worse. Patient states he has a hx of asthma and took a breathing tx of albuterol around 0700 with no relief. Patient denies pain or discomfort. Lungs noted to have wheezing througout. Physician History: 43-year-old male with history of asthma, hyperlipidemia presented in the ER with 2 days history of increasing shortness of breath and wheezing despite using his neb treatments. Patient reports minimal cough but no fever or chills. Denies any chest pain but tightness. Reports having similar symptoms in the past with asthma exacerbation. He has been using neb treatments frequently since last night but does not get much relief. Allergies/Adverse Reactions: No Known Drug Allergies Allergy (Verified 01/04/24 10:05) Home Medications: Fluticasone Propion/Salmeterol [Fluticasone-Salmeterol 250-50] 1 puff IH BID 01/23/20 [History] Hx Tetanus, Diphtheria Vaccination/Date Given: Yes Hx Influenza Vaccination/Date Given: No Hx Pneumococcal Vaccination/Date Given: No Immunizations Up to Date: Yes Travel Risk - International Travel Have you traveled outside of the country in past 3 weeks: No - Emerging Infectious Disease Are you exhibiting symptoms associated with any current EIDs: No - Review of Systems Constitutional: No Symptoms Eyes: No Symptoms Ears, Nose, & Throat: No Symptoms Respiratory: Cough, Dyspnea, Wheezing Cardiac: No Symptoms Abdominal/Gastrointestinal: No Symptoms Genitourinary Symptoms: No Symptoms Musculoskeletal: No Symptoms Skin: No Symptoms, Skin Lesions Endocrine: No Symptoms - Past Medical History Pertinent Past Medical History: Yes Neurological History: No Pertinent History ENT History: No Pertinent History Cardiac History: High Cholesterol Respiratory History: Asthma, Other Endocrine Medical History: No Pertinent History Musculoskeletal History: No Pertinent History GI Medical History: No Pertinent History History: No Pertinent History Psycho-Social History: No Pertinent History Male Reproductive Disorders: No Pertinent History Other Medical History: previous MRSA - Past Surgical History Past Surgical History: No Neuro Surgical History: No Pertinent History Cardiac: No Pertinent History Respiratory: No Pertinent History Gastrointestinal: No Pertinent History Genitourinary: No Pertinent History Musculoskeletal: No Pertinent History Male Surgical History: No Pertinent History Significant Family History: no pertinent family hx, cancer (pancreatic: father) - Social History Smoking Status: Never smoker Exposure to second hand smoke: No Alcohol Use: Socially Drug Use: none Patient Lives Alone: No - Nursing Vital Signs Nursing Vital Signs: Initial Vital Signs Temperature 97.7 F 01/04/24 09:08 Pulse Rate 90 01/04/24 09:08 Respiratory Rate 17 01/04/24 09:08 Blood Pressure 153/86 01/04/24 09:08 O2 Sat by Pulse Oximetry 99 01/04/24 09:08 Pain Scale Pain Intensity 0 - Physical Exam General Appearance: no apparent distress, alert Eye Exam: PERRL/EOMI Ears, Nose, Throat Exam: hearing grossly normal, normal ENT inspection, normal pharynx Neck Exam: normal inspection, non-tender, supple, full range of motion Respiratory Exam: rhonchi, wheezing Cardiovascular/Chest Exam: normal heart sounds, regular rate/rhythm Abdominal/Gastrointestinal Exam: soft, normal bowel sounds, No tenderness Extremity Exam: non-tender Neurologic Exam: alert, oriented x 3, cooperative Skin Exam: normal color SpO2 Interpretation: normal SpO2: 98 O2 Delivery: Room Air - Course EKG Interpreted by Me: RATE (78), Sinus Rhythm, NORMAL AXIS, NORMAL INTERVALS, NORMAL QRS Ordered Tests: Active Orders 24 hr Category Date Time Status Front Desk Receptionist STAT Care 01/04/24 09:18 Active EKG-ER Only STAT Care 01/04/24 09:18 Active IV Insertion STAT Care 01/04/24 09:18 Active CHEST 1 VIEW (PORTABLE) Stat Exams 01/04/24 09:18 Taken BLOOD CULTURE Stat Lab 01/04/24 09:54 Received CBC W DIFF Stat Lab 01/04/24 09:30 Completed CMP Stat Lab 01/04/24 09:30 Completed D-DIMER QUANTITATIVE Stat Lab 01/04/24 09:30 Completed MAGNESIUM Stat Lab 01/04/24 09:30 Completed NT PRO BNPII Stat Lab 01/04/24 09:30 Completed TROPONIN Q4H Lab 01/04/24 09:30 Completed TROPONIN Q4H Lab 01/04/24 13:30 Ordered TROPONIN Q4H Lab 01/04/24 17:30 Ordered Respiratory Therapy Assessment DAILY RT 01/04/24 09:42 Completed Medication Summary Discontinued Medications Generic Name Dose Route Start Last Admin Trade Name Elpidio PRN Reason Stop Dose Admin Albuterol/Ipratropium 3 ml 01/04/24 09:18 01/04/24 09:37 Ipratropium/Albuterol Sulfate 3 Ml Ampul.Neb IH 01/04/24 09:19 3 ml STAT ONE Administration Albuterol/Ipratropium Confirm 01/04/24 09:34 Ipratropium/Albuterol Sulfate 3 Ml Ampul.Neb Administered 01/04/24 09:35 Dose 3 ml IH .STK-MED ONE Methylprednisolone Sodium 0 mg 01/04/24 09:18 01/04/24 09:22 Succinate 125 mg/ Sterile IV 01/04/24 09:19 125 mg Water 2 ml STAT ONE Administration Methylprednisolone Sodium Succinate Confirm 01/04/24 09:21 Methylprednis Sod Succ 125 Mg/2 Ml Vial Administered 01/04/24 09:22 Dose 125 mg .ROUTE .STK-MED ONE Sterile Water Confirm 01/04/24 09:21 Water For Injection,Sterile 10 Ml Vial Administered 01/04/24 09:22 Dose 10 ml IJ .STK-MED ONE Lab/Rad Data: Laboratory Result Diagrams 01/04/24 09:30 01/04/24 09:30 Laboratory Results 01/04/24 01/04/24 01/04/24 Range/Units 09:30 09:30 09:30 WBC (4.0-10.5) x10^3/uL RBC (4.1-5.6) x10^6/uL Hgb (12.5-18.0) g/dL Hct (42-50) % MCV (78-100) fL MCH (26-32) pg MCHC (32-36) g/dL RDW (11.5-14.0) % Plt Count (150-450) x10^3/uL MPV (7.5-11.0) fL Gran % (36.0-66.0) % Immature Gran % (Auto) (0.00-0.4) % Nucleat RBC Rel Count (0.00-0.1) % Eos # (Auto) (0-0.5) x10^3/uL Immature Gran # (Auto) (0.00-0.03) x10^3u/L Absolute Lymphs (auto) (1.0-4.6) x10^3/uL Absolute Monos (auto) (0.0-1.3) x10^3/uL Absolute Nucleated RBC (0.00-0.01) x10^3u/L Lymphocytes % (24.0-44.0) % Monocytes % (0.0-12.0) % Eosinophils % (0.00-5.0) % Basophils % (0.0-0.4) % Absolute Granulocytes (1.4-6.9) x10^3/uL Basophils # (0-0.4) x10^3/uL D-Dimer 0.32 (0.0-0.50) mg/L Sodium (135-145) mmol/L Potassium (3.5-5.1) mmol/L Chloride (98-107) mmol/L Carbon Dioxide (22-30) mmol/L Anion Gap (5-15) MEQ/L BUN (9-20) mg/dL Creatinine (0.66-1.25) mg/dL Estimated GFR ML/MIN Glucose (74-106) mg/dL Calcium (8.4-10.2) mg/dL Magnesium (1.6-2.3) mg/dL Total Bilirubin (0.2-1.3) mg/dL AST (17-59) U/L ALT (0-50) U/L Alkaline Phosphatase (38-126) U/L Troponin I < 0.012 (0.000-0.033) ng/mL NT-Pro-B Natriuret Pep 42.1 (<300) pg/mL Serum Total Protein (6.3-8.2) g/dL Albumin (3.5-5.0) g/dL 01/04/24 01/04/24 Range/Units 09:30 09:30 WBC 7.4 (4.0-10.5) x10^3/uL RBC 4.70 (4.1-5.6) x10^6/uL Hgb 15.2 (12.5-18.0) g/dL Hct 44.2 (42-50) % MCV 94.0 (78-100) fL MCH 32.3 H (26-32) pg MCHC 34.4 (32-36) g/dL RDW 12.0 (11.5-14.0) % Plt Count 212 (150-450) x10^3/uL MPV 10.3 (7.5-11.0) fL Gran % 67.9 H (36.0-66.0) % Immature Gran % (Auto) 0.1 (0.00-0.4) % Nucleat RBC Rel Count 0.0 (0.00-0.1) % Eos # (Auto) 0.05 (0-0.5) x10^3/uL Immature Gran # (Auto) 0.01 (0.00-0.03) x10^3u/L Absolute Lymphs (auto) 1.40 (1.0-4.6) x10^3/uL Absolute Monos (auto) 0.88 (0.0-1.3) x10^3/uL Absolute Nucleated RBC 0.00 (0.00-0.01) x10^3u/L Lymphocytes % 19.0 L (24.0-44.0) % Monocytes % 12.0 (0.0-12.0) % Eosinophils % 0.7 (0.00-5.0) % Basophils % 0.3 (0.0-0.4) % Absolute Granulocytes 5.00 (1.4-6.9) x10^3/uL Basophils # 0.02 (0-0.4) x10^3/uL D-Dimer (0.0-0.50) mg/L Sodium 140 (135-145) mmol/L Potassium 4.1 (3.5-5.1) mmol/L Chloride 107 (98-107) mmol/L Carbon Dioxide 21 L (22-30) mmol/L Anion Gap 15.7 H (5-15) MEQ/L BUN 14 (9-20) mg/dL Creatinine 0.90 (0.66-1.25) mg/dL Estimated GFR 110.0 ML/MIN Glucose 100 (74-106) mg/dL Calcium 9.5 (8.4-10.2) mg/dL Magnesium 2.1 (1.6-2.3) mg/dL Total Bilirubin 1.20 (0.2-1.3) mg/dL AST 41 (17-59) U/L ALT 40 (0-50) U/L Alkaline Phosphatase 72 (38-126) U/L Troponin I (0.000-0.033) ng/mL NT-Pro-B Natriuret Pep (<300) pg/mL Serum Total Protein 7.5 (6.3-8.2) g/dL Albumin 4.5 (3.5-5.0) g/dL - Progress Progress: re-examined Air Movement: good Progress Note: 01/04/24 11:04 43-year-old with history of asthma is evaluated for worsening wheezing and shortness of breath despite using albuterol nebs. Patient is wheezing diffusely, not in much distress. Patient is given DuoNeb and Solu-Medrol, on reevaluation feeling much better. Room air oxygen around 98%. No tachypnea or tachycardia. Patient chest x-ray negative for any acute cardiopulmonary findings reviewed by me, official report is pending. Normal white count, fairly unremarkable chemistries, negative troponins and D-dimers. EKG is normal sinus rhythm with no acute ischemic changes. I believe patient has acute asthma exacerbation and does not seem to be cardiac etiology shortness of breath. I do not think patient needs any other workup, blood cultures are pending. Do not think patient needs antibiotic. I would change his nebulizers from just albuterol to DuoNeb and short course of steroid, outpatient follow-up recommended. Discussed signs symptoms of worsening needing return to ER which she seems understanding. Stable for discharge. Blood Culture(s) Obtained: Yes Antibiotics given: No Counseled pt/family regarding: lab results, diagnosis, need for follow-up, rad results Medical Desision Making - Diagnostic Testing Diagnostic test were ordered, analyzed, and reviewed by me: Yes Radiological Interpretation: Interpreted by me, Reviewed by me - Risk of complications The pt has a mod risk of morbidity or mortality based on: Need for prescription drug management - Departure Departure Disposition: Home Clinical Impression: Acute asthma exacerbation Condition: Stable Critical Care Time: No Referrals: PAT STOLL [Primary Care Provider] - Follow up with PCP 1 day Instructions: Asthma, Adult (DC) Additional Instructions: Use DuoNeb every 4-6 hours as needed. Follow-up with primary care for reevaluation. Return to ER for worsening shortness of breath/wheezing, chest tightness pressure or if develop fever chills etc. Prescriptions: Prednisone 20 mg [Deltasone 20 mg] 60 mg PO DAILY 5 Days #15 tablet Albuterol/Ipratropium 3ml Neb* [DUONEB 0.5-3 MG/3 ml Neb] 3 ml IH Q4-6HPRN PRN 10 Days #60 amp PRN Reason: Shortness Of Breath/Wheezing
[2024-01-04 11:16] VITALS: BP 148/78; PULSE 78; RESP 20
--- NOTE | 2024-01-04 19:34 | XRAY ---
Indication: Short of breath. Comparison: September 15, 2019 Portable chest again demonstrates normal heart and lungs. Bony thorax intact again with mild double curvature scoliosis. No new/acute findings.
== END 2024-01-04 11:19 | disposition home or self-care (01) ==
LOC: ED 08:53
DX: J45.901 Unspecified asthma with (acute) exacerbation (principal); R06.02 Shortness of breath; E78.5 Hyperlipidemia, unspecified; Z79.52 Long term (current) use of systemic steroids; Z79.899 Other long term (current) drug therapy
CPT/HCPCS: 36000; 36415; 71045; 80053; 83735; 83880; 84484; 85025; 85379; 87040; 93005; 93041; 94640; 96374; 99284; J2919; A9270-GY

== ENCOUNTER 2024-04-04 19:21 | Emergency (ER) | payer BC ==
--- NOTE | 2024-04-04 19:57 | ERPHSYRPT ---
- History of Present Illness Time Seen by Provider: 04/04/24 19:57 Source: patient Exam Limitations: no limitations Physician History: 43yo m presents via private vehicle for cough x 2d. Pt reports significant hx of asthma. Pt reports multiple sick contacts at home, states he developed fever of 102f yesterday that has resolved w/ tylenol/iburprofen. Pt reports his cough has progressively worsened, states he has had multiple albuterol nebulizer treatments today but still reports feeling short of breath and his cough is persisting. Pt denies any cp, n/v/d. Timing/Duration: day(s) (2) Cough Quality/Degree: moderate, dry cough Possible Cause: chronic episodes Modifying Factors: Improves With: nothing Associated Symptoms: fever, cough, nasal congestion, shortness of breath, No chest pain/soreness, No sore throat, No wheezing Allergies/Adverse Reactions: No Known Drug Allergies Allergy (Verified 04/04/24 19:59) Home Medications: Fluticasone Propion/Salmeterol [Fluticasone-Salmeterol 250-50] 1 puff IH BID 01/23/20 [History] Albuterol 2.5 mg/3 ml Neb [Proventil 2.5 mg/3 ml Neb] 2.5 mg IH Q4H PRN PRN 04/04/24 [History] Albuterol Common Canister [Ventolin Common Canister] 2 puff IH Q4HPRN PRN 04/04/24 [History] Hx Tetanus, Diphtheria Vaccination/Date Given: Yes Hx Influenza Vaccination/Date Given: No Hx Pneumococcal Vaccination/Date Given: No Travel Risk - Emerging Infectious Disease Are you exhibiting symptoms associated with any current EIDs: No - Review of Systems Constitutional: Fever Ears, Nose, & Throat: Nose Congestion, Sinus Drainage Respiratory: Cough, Dyspnea, No Stridor, No Wheezing Cardiac: No Symptoms Abdominal/Gastrointestinal: No Symptoms - Past Medical History Pertinent Past Medical History: Yes Neurological History: No Pertinent History ENT History: No Pertinent History Cardiac History: High Cholesterol Respiratory History: Asthma, Other Endocrine Medical History: No Pertinent History Musculoskeletal History: No Pertinent History GI Medical History: No Pertinent History History: No Pertinent History Psycho-Social History: No Pertinent History Male Reproductive Disorders: No Pertinent History Other Medical History: previous MRSA - Past Surgical History Past Surgical History: No Neuro Surgical History: No Pertinent History Cardiac: No Pertinent History Respiratory: No Pertinent History Gastrointestinal: No Pertinent History Genitourinary: No Pertinent History Musculoskeletal: No Pertinent History Male Surgical History: No Pertinent History Significant Family History: no pertinent family hx, cancer (pancreatic: father) - Social History Smoking Status: Never smoker Exposure to second hand smoke: No Alcohol Use: Socially Drug Use: none Patient Lives Alone: No - Social Determinants of Health Will the patient participate in the screening: Yes Do you worry about a steady place to live?: No In the past 12 months,have you had to go without utilities?: No Transportation Issues: No Has anyone in your support network made you feel unsafe?: No Have you or anyone in your house had to go without enough: No - Nursing Vital Signs Nursing Vital Signs: Initial Vital Signs Temperature 99.7 F 04/04/24 19:44 Pulse Rate 110 H 04/04/24 19:44 Respiratory Rate 18 04/04/24 19:44 Blood Pressure 126/90 04/04/24 19:44 O2 Sat by Pulse Oximetry 96 04/04/24 19:44 Pain Scale Pain Intensity 3 - Physical Exam General Appearance: no apparent distress, alert Respiratory Exam: normal breath sounds, lungs clear, airway intact, No chest tenderness, No respiratory distress, No diminished breath sounds, No accessory muscle use, No crackles/rales, No rhonchi, No wheezing, No stridor Cardiovascular Exam: normal heart sounds, normal peripheral pulses, tachycardia Gastrointestinal/Abdomen Exam: soft, normal bowel sounds, No tenderness, No distention Neurologic Exam: alert, oriented x 3, cooperative Lymphatic Exam: adenopathy SpO2 Interpretation: normal SpO2: 96 O2 Delivery: Room Air Ordered Tests: Active Orders 24 hr Category Date Time Status CHEST 2 VIEWS (PA AND LAT) Stat Exams 04/04/24 19:55 Taken BMP Stat Lab 04/04/24 20:05 Completed CBC W DIFF Stat Lab 04/04/24 20:05 Completed Respiratory Therapy Assessment DAILY RT 04/04/24 20:58 Active Medication Summary Discontinued Medications Generic Name Dose Route Start Last Admin Trade Name Freq PRN Reason Stop Dose Admin Albuterol/Ipratropium 3 ml 04/04/24 20:36 04/04/24 20:55 Ipratropium/Albuterol Sulfate 3 Ml Ampul.Neb IH 04/04/24 20:37 3 ml STAT ONE Administration Albuterol/Ipratropium Confirm 04/04/24 20:53 Ipratropium/Albuterol Sulfate 3 Ml Ampul.Neb Administered 04/04/24 20:54 Dose 3 ml IH .STK-MED ONE Methylprednisolone Sodium 0 mg 04/04/24 20:36 04/04/24 20:59 Succinate 125 mg/ Sterile IV 04/04/24 20:37 125 mg Water 2 ml STAT ONE Administration Methylprednisolone Sodium Succinate Confirm 04/04/24 20:52 Methylprednis Sod Succ 125 Mg/2 Ml Vial Administered 04/04/24 20:53 Dose 125 mg .ROUTE .STK-MED ONE Sterile Water Confirm 04/04/24 20:52 Water For Injection,Sterile 10 Ml Vial Administered 04/04/24 20:53 Dose 10 ml IJ .STK-MED ONE Lab/Rad Data: Laboratory Result Diagrams 04/04/24 20:05 04/04/24 20:05 Laboratory Results 04/04/24 04/04/24 04/04/24 Range/Units 20:15 20:05 20:05 WBC 5.5 (4.23-9.07) x10^3/uL RBC 4.36 L (4.63-6.08) x10^6/uL Hgb 14.4 (13.7-17.5) g/dL Hct 40.8 (40.1-51.0) % MCV 93.6 H (79.0-92.2) fL MCH 33.0 H (25.7-32.2) pg MCHC 35.3 (32.3-36.5) g/dL RDW 12.5 (11.6-14.4) % Plt Count 241 (163-337) x10^3/uL MPV 10.0 (9.4-12.4) fL Gran % 59.1 (34.0-67.9) % Immature Gran % (Auto) 0.4 (0.001-0.429) % Nucleat RBC Rel Count 0.0 (0.00-0.2) % Eos # (Auto) 0.30 (0.04-0.54) x10^3/uL Immature Gran # (Auto) 0.02 (0.001-0.031) x10^3u/L Absolute Lymphs (auto) 1.12 L (1.32-3.57) x10^3/uL Absolute Monos (auto) 0.78 (0.30-0.82) x10^3/uL Absolute Nucleated RBC 0.00 (0.00-0.012) x10^3u/L Lymphocytes % 20.3 L (21.8-53.1) % Monocytes % 14.1 H (5.3-12.2) % Eosinophils % 5.4 (0.8-7.0) % Basophils % 0.7 (0.2-1.2) % Absolute Granulocytes 3.27 (1.78-5.38) x10^3/uL Basophils # 0.04 (0.01-0.08) x10^3/uL Sodium 139 (135-145) mmol/L Potassium 3.2 L (3.5-5.1) mmol/L Chloride 107 (98-107) mmol/L Carbon Dioxide 22 (22-30) mmol/L Anion Gap 13.4 (5-15) MEQ/L BUN 16 (9-20) mg/dL Creatinine 0.99 (0.66-1.25) mg/dL Estimated GFR 98.2 ML/MIN Glucose 131 H (74-106) mg/dL Calcium 9.6 (8.4-10.2) mg/dL Influenza Type A Ag NEGATIVE (NEGATIVE) Influenza Type B Ag NEGATIVE (NEGATIVE) RSV (PCR) NEGATIVE (NEGATIVE) SARS-CoV-2 (PCR) POSITIVE A (NEGATIVE) - Progress Progress: improved Air Movement: good Progress Note: 04/04/24 23:08 cough likely 2/2 covid vs asthma exacerbation covid + labs otherwise largely unremarkable, vitals stable plan for discharge home w/ prednisone burst, duoneb treatments no indication for paxlovid, pt outside of 72h window for sx onset recommend oral hydration w/ clear liquids, pedialyte, gatorade recommend to continue albuterol treatments, duoneb treatments return to ED if: shortness of breath worsens, develop fever that does not respond to tylenol, develop chest pain Blood Culture(s) Obtained: No Antibiotics given: No Counseled pt/family regarding: lab results, diagnosis, need for follow-up, rad results Medical Desision Making - Diagnostic Testing Diagnostic test were ordered, analyzed, and reviewed by me: Yes Radiological Interpretation: Interpreted by me, Reviewed by me - Risk of complications Low Risk: Low risk of morbidity from additional dx testing or treatment - Departure Departure Disposition: Home Clinical Impression: COVID Cough Qualifiers: Cough type: acute Qualified Code(s): R05.1 - Acute cough Condition: Stable Critical Care Time: No Referrals: PAT STOLL [Primary Care Provider] - Follow up/PCP as directed Additional Instructions: plan for discharge home w/ prednisone burst, duoneb treatments no indication for paxlovid, pt outside of 72h window for sx onset recommend oral hydration w/ clear liquids, pedialyte, gatorade recommend to continue albuterol treatments, duoneb treatments return to ED if: shortness of breath worsens, develop fever that does not respond to tylenol, develop chest pain Prescriptions: Albuterol/Ipratropium 3ml Neb* [DUONEB 0.5-3 MG/3 ml Neb] 3 ml IH Q4HPRN PRN #15 ml PRN Reason: Cough predniSONE [Prednisone] 50 mg PO DAILY #4 tablet
[2024-04-04 19:59] VITALS: TEMP 99.7
[2024-04-04 20:18] LABS: Absolute Neutrophil Ct (ANC) 3.27 x10^3/uL (1.78-5.38); BASOPHIL % 0.7 % (0.2-1.2); Basophil (Absolute #) 0.04 x10^3/uL (0.01-0.08); Eosinophil % 5.4 % (0.8-7.0); Hematocrit 40.8 % (40.1-51.0); Hemoglobin 14.4 g/dL (13.7-17.5); IMMATURE GRAN # 0.02 x10^3u/L (0.001-0.031); IMMATURE GRAN % 0.4 % (0.001-0.429); Lymphocyte (Absolute #) 1.12 x10^3/uL (1.32-3.57); Lymphocytes % 20.3 % (21.8-53.1); Mean Cell Volume 93.6 fL (79.0-92.2); Mean Corpuscular Hgb Concent. 35.3 g/dL (32.3-36.5); Monocyte (Absolute #) 0.78 x10^3/uL (0.30-0.82); Monocytes % 14.1 % (5.3-12.2); Neutrophil % 59.1 % (34.0-67.9); Platelet Count 241 x10^3/uL (163-337); Red Blood Count 4.36 x10^6/uL (4.63-6.08); Red Cell Distribution Width 12.5 % (11.6-14.4); White Blood Count 5.5 x10^3/uL (4.23-9.07)
[2024-04-04 20:40] LABS: ANION GAP 13.4 MEQ/L (5-15); Calcium 9.6 mg/dL (8.4-10.2); Creatinine 1 0.99 mg/dL (0.66-1.25); EST GLOMERULAR FILTRATION RATE 98.2 ML/MIN; Potassium 3.2 mmol/L (3.5-5.1)
[2024-04-04] MEDS ORDERED: solu-MEDROL ONE (20:52)
[2024-04-04] MEDS ORDERED: Sterile H2O 10 ml IJ ONE (20:52)
[2024-04-04] MEDS ORDERED: DUONEB 0.5-3 MG/3 ml Neb IH ONE (20:53)
[2024-04-04 20:54] LABS: INFLUENZA A NEGATIVE (NEGATIVE); INFLUENZA B NEGATIVE (NEGATIVE); RESPIRATORY SYNCTIAL VIRUS NEGATIVE (NEGATIVE)
[2024-04-04] MEDS: DUONEB 0.5-3 MG/3 ml Neb IH ONE (20:55)
[2024-04-04 20:56] LABS: SARS-CoV-2 Xpert Express POSITIVE (NEGATIVE)
[2024-04-04] MEDS: solu-MEDROL 125 MG, Sterile H2O 10 ml 2 ML IV ONE (20:59)
[2024-04-04 21:27] VITALS: RESP 18
[2024-04-04 23:14] VITALS: O2SAT 96
[2024-04-04 23:17] VITALS: BP 126/87; PULSE 86
--- NOTE | 2024-04-05 08:42 | XRAY ---
Indication: Cough, cold, and fever. Comparison: January 04, 2024 PA/lateral chest again demonstrates normal heart and lungs. Bony thorax intact again with mild double curvature scoliosis. No new/acute findings.
== END 2024-04-04 23:32 | disposition home or self-care (01) ==
LOC: ED 19:21
DX: U07.1 COVID-19 (principal); R05.1 Acute cough; R50.9 Fever, unspecified; Z79.52 Long term (current) use of systemic steroids; Z79.899 Other long term (current) drug therapy; E78.5 Hyperlipidemia, unspecified
CPT/HCPCS: 0241U; 36415; 71046; 80048; 85025; 94640; 96374; 99283; J2919; A9270-GY

== ENCOUNTER 2025-05-30 04:26 | Emergency (ER) | payer BC ==
[2025-05-30 04:36] VITALS: TEMP 97.6
[2025-05-30 05:21] LABS: VBG BASE EXCESS 0.3 (-2.0-2.0); VBG CARBOXYHEMOGLOBIN 0.8 % T HGB (0.0-6.9); VBG FIO2 21.0 %; VBG HCO3- 24.6 meq/L (22-28); VBG HEMOGLOBIN 16.4; VBG O2 SATURATION 97.8 (95-100); VBG PCO2 38.0 mm/Hg (42-55); VBG PO2 85.0 mm/Hg (25-40); VBG POTASSIUM 4.1 (3.5-5.1)
[2025-05-30 05:32] VITALS: O2SAT 96
--- NOTE | 2025-05-30 05:34 | XRAY ---
CLINICAL HISTORY: headache COMPARISON: none TECHNIQUE: Multiple axial images were obtained from the skull base to the vertex without contrast. CT scan was performed according to ALARA (as low as reasonably achievable). FINDINGS: The brain demonstrates normal morphology, attenuation, and volume for age. There is no evidence of space-occupying lesion, hemorrhage, edema, mass effect, midline shift, extra-axial collection, or hydrocephalus. The ventricles, sulci, and basal cisterns are symmetric and normal in size and configuration. The qureshi-white matter differentiation is preserved. Mild mucosal thickening is noted in the bilateral maxillary, ethmoid, and frontal sinuses. The visualized mastoid air cells are well aerated. The orbital contents are within normal limits. The bony structures are intact. IMPRESSION: 1. No evidence of acute intracranial abnormality is demonstrated. Electronically Signed by: Heath Laguerre MD. (05/30/2025 05:31:59 EDT)
[2025-05-30] MEDS ORDERED: TORAdol 30 mg Injection ONE (05:39)
[2025-05-30] MEDS ORDERED: Hydromorphone 1 mg/ml Injection ONE (05:39)
[2025-05-30] MEDS ORDERED: ZOFRAN ODT 4 MG ONE (05:39)
[2025-05-30] MEDS: ZOFRAN ODT 4 MG PO ONE (05:43)
[2025-05-30] MEDS: Hydromorphone 1 mg/ml Injection IM ONE (05:44)
[2025-05-30] MEDS: TORAdol 30 mg Injection IM ONE (05:44)
--- NOTE | 2025-05-30 05:48 | ERPHSYRPT ---
- History of Present Illness Time Seen by Provider: 05/30/25 04:50 Source: patient Exam Limitations: no limitations Patient Subjective Stated Complaint: "I got a bad headache yesterday at work and then I woke up again today and the headache is still there. I've never had a nything like this in my life. Both of my sons have been getting headaches the past few days too". Triage Nursing Assessment: Pt presents to ER with complaints of headache that started yesterday while at work around Noon. Pt states it came on all of a sudden, denies history of migraines or headaches. Pt states he attempted to take OTC meds with minimial relief, work up again this morning and still had headache. States does have some mild nausea, denies vomiting. Denies fever. States others in his home have been having headaches too, worried about carbon monoxide poisioning. Pt is alert and oriented x3. Skin is pink, warm, and dry. Respirations are easy and unlabored. Pt pupils are 2mm otto PERRL. Son at bedside. Pt is able to ambulate without difficulty. States some light sensitivity. Denies dizziness. Physician History: This is a 45-year-old white male patient who presents to the emergency department with complaints of generalized headache that is the worst headache he has ever had. It began on the evening of 05/28/2025, worsened throughout the day on 05/29/2025 and then returned earlier this morning waking the patient up. He has aches and pains present and a underlying level of nausea. His pain did not respond to [id number] medication. He describes the pain as a constant ache with periodic more intense throbbing pain. There are family members have had similar symptoms prior to him having these symptoms. They were concerned about the possibility of carbon monoxide poisoning. Patient has no visual changes. He has not had any fevers. He denies neck pain. Timing/Duration: yesterday Quality: aching, throbbing Head Pain Location: global Severity of Pain-Max: moderate Severity of Pain-Current: moderate Recent Head Trauma: no recent headache/trauma Modifying Factors: Improves With: exposure to light, noise Associated Symptoms: nausea/vomiting (Nausea but no vomiting), sensitive to light, No confusion, No loss of consciousness, No nasal congestion, No neck pain, No speech problems, No vision changes, No visual disturbance Previous symptoms: no prior history, no recent treatment Allergies/Adverse Reactions: No Known Drug Allergies Allergy (Verified 05/30/25 04:32) Home Medications: Fluticasone/Salmeterol 230/21* [Advair Hfa 230/21 Mcg MDI] 2 puff IH BID 05/30/25 [History] Hx Tetanus, Diphtheria Vaccination/Date Given: No Hx Influenza Vaccination/Date Given: No Hx Pneumococcal Vaccination/Date Given: No Immunizations Up to Date: No Travel Risk - International Travel Have you traveled outside of the country in past 3 weeks: No - Emerging Infectious Disease Are you exhibiting symptoms associated with any current EIDs: No Symptoms: Cough: New Onset, Fever, Headaches/Body Aches/ - Review of Systems Constitutional: No Symptoms Eyes: No Symptoms Ears, Nose, & Throat: No Symptoms Respiratory: No Symptoms Cardiac: No Symptoms Abdominal/Gastrointestinal: Nausea, Appetite Changes, No Abdominal Pain, No Vomiting, No Diarrhea Genitourinary Symptoms: No Symptoms Musculoskeletal: Arthralgias, Myalgias Neurological: No Dizziness, No Headache Psychological: No Symptoms Endocrine: No Symptoms Hematologic/Lymphatic: No Symptoms Immunological/Allergic: No Symptoms All Other Systems: Reviewed and Negative - Past Medical History Pertinent Past Medical History: Yes Neurological History: No Pertinent History ENT History: No Pertinent History Cardiac History: High Cholesterol Respiratory History: Asthma, Other Endocrine Medical History: No Pertinent History Musculoskeletal History: No Pertinent History GI Medical History: No Pertinent History History: No Pertinent History Psycho-Social History: No Pertinent History Male Reproductive Disorders: No Pertinent History Other Medical History: previous MRSA - Past Surgical History Past Surgical History: No Neuro Surgical History: No Pertinent History Cardiac: No Pertinent History Respiratory: No Pertinent History Gastrointestinal: No Pertinent History Genitourinary: No Pertinent History Musculoskeletal: No Pertinent History Male Surgical History: No Pertinent History Significant Family History: no pertinent family hx, cancer (pancreatic: father) - Social History Smoking Status: Never smoker Exposure to second hand smoke: No Drug Use: none - Social Determinants of Health Will the patient participate in the screening: Yes Do you worry about a steady place to live?: No Do you have any problems with any of the following?: No known problems In the past 12 months,have you had to go without utilities?: No Transportation Issues: No Has anyone in your support network made you feel unsafe?: No Have you or anyone in your house had to go w/o enough food: No - Nursing Vital Signs Nursing Vital Signs: Initial Vital Signs Temperature 97.6 F 05/30/25 04:32 Pulse Rate 87 05/30/25 04:32 Respiratory Rate 18 05/30/25 04:32 Blood Pressure 142/103 05/30/25 04:32 O2 Sat by Pulse Oximetry 98 05/30/25 04:32 Pain Scale Pain Intensity 3 - Physical Exam General Appearance: mild distress, alert, anxiety Eye Exam: PERRL/EOMI, eyes nml inspection Ears, Nose, Throat Exam: normal ENT inspection Neck Exam: normal inspection, non-tender, supple, full range of motion Respiratory Exam: normal breath sounds, lungs clear, airway intact, No chest tenderness, No respiratory distress Cardiovascular Exam: regular rate/rhythm, normal heart sounds, normal peripheral pulses Gastrointestinal/Abdominal Exam: soft, normal bowel sounds, No tenderness Extremity Exam: normal inspection, normal range of motion Mental Status Exam: alert, oriented x 3, cooperative starchmaker Exam: normal hearing, normal speech, PERRL, tongue midline Coordination/Gait Exam: normal gait, normal cerebellar function Motor/Sensory Exam: no motor deficit, no sensory deficit, no pronator drift Skin Exam: normal color, warm, dry Lymphatic Exam: No adenopathy SpO2 Interpretation: normal SpO2: 96 O2 Delivery: Room Air - Course Nursing assessment & vital signs reviewed: Yes Ordered Tests: Active Orders 24 hr Category Date Time Status HEAD WITHOUT CONTRAST [CT] Stat Exams 05/30/25 04:56 Completed VBG [VENOUS BLOOD GAS] Stat Lab 05/30/25 05:17 Completed Medication Summary Discontinued Medications Generic Name Dose Route Start Last Admin Trade Name Elpidio PRN Reason Stop Dose Admin Hydromorphone HCl 1 mg 05/30/25 05:31 05/30/25 05:44 Hydromorphone 1 Mg/1ml Inj IM 05/30/25 05:32 1 mg STAT ONE Administration Hydromorphone HCl Confirm 05/30/25 05:39 Hydromorphone 1 Mg/1ml Inj Administered 05/30/25 05:40 Dose 1 mg .ROUTE .STK-MED ONE Ketorolac Tromethamine 60 mg 05/30/25 05:31 05/30/25 05:44 Ketorolac Tromethamine 30 Mg/Ml Inj IM 05/30/25 05:32 60 mg STAT ONE Administration Ketorolac Tromethamine Confirm 05/30/25 05:39 Ketorolac Tromethamine 30 Mg/Ml Inj Administered 05/30/25 05:40 Dose 60 mg .ROUTE .STK-MED ONE Ondansetron HCl 4 mg 05/30/25 05:31 05/30/25 05:43 Zofran 4 Mg/Udtablet Orally Disintegrating PO 05/30/25 05:32 4 mg STAT ONE Administration Ondansetron HCl Confirm 05/30/25 05:39 Zofran 4 Mg/Udtablet Orally Disintegrating Administered 05/30/25 05:40 Dose 4 mg .ROUTE .STK-MED ONE Lab/Rad Data: Laboratory Results 05/30/25 05/30/25 Range/Units 05:33 05:17 pO2/FiO2 Ratio 21.0 % VBG pH 7.42 (7.32-7.42) VBG pCO2 at Pat Temp 38 L (42-55) mm/Hg VBG pO2 at Pat Temp 85 H (25-40) mm/Hg VBG HCO3 24.6 (22-28) meq/L VBG O2 Sat ([place]) 97.8 (95-100) VBG Base Excess 0.3 (-2.0-2.0) VBG Hemoglobin 16.4 VBG Carboxyhemoglobin 0.8 (0.0-6.9) % T HGB POC Potassium 4.1 (3.5-5.1) Influenza Type A Ag NEGATIVE (NEGATIVE) Influenza Type B Ag NEGATIVE (NEGATIVE) RSV (PCR) NEGATIVE (NEGATIVE) SARS-CoV-2 (PCR) NEGATIVE (NEGATIVE) - Progress Progress: improved, re-examined Air Movement: good Progress Note: 05/30/25 05:47 My medical decision making and the assignment of moderate complexity of this patient's medical issue today is based on review of the patient's past medical history, reviewed patient's medication list, reviewed patient drug allergy list, history present illness and physical findings on examination. The workup in this patient included CT scan of the head without contrast, VBG to check for carbon monoxide levels and viral swabs. Differential diagnosis includes but is not limited to acute intracranial abnormality, sinusitis, viral illness The CT scan of the head without contrast was interpreted by the radiologist and I reviewed the impression. The impression states no evidence of acute intracranial abnormality. Counseled pt/family regarding: lab results, diagnosis, rad results Medical Desision Making - Independent Historian Additional History obtained from: Family - Diagnostic Testing Diagnostic test were ordered, analyzed, and reviewed by me: Yes Radiological Interpretation: Reviewed by me, Teleradiologist Report - Risk of complications Low Risk: Low risk of morbidity from additional dx testing or treatment - Departure Departure Disposition: Home Clinical Impression: Headache Condition: Stable Critical Care Time: No Referrals: PAT STOLL [Primary Care Provider, [facility]] - Follow up/PCP as directed Additional Instructions: May alternate Tylenol and ibuprofen every 4 hours while awake. Call your primary care provider today, 05/30/2025, to make arrangements for follow-up appointment for further evaluation and management and to be seen in the next 3 to 5 days.
[2025-05-30 06:14] VITALS: BP 123/88; PULSE 78; RESP 16
[2025-05-30 06:18] LABS: INFLUENZA A NEGATIVE (NEGATIVE); INFLUENZA B NEGATIVE (NEGATIVE); RESPIRATORY SYNCTIAL VIRUS NEGATIVE (NEGATIVE); SARS-CoV-2 Xpert Express NEGATIVE (NEGATIVE)
== END 2025-05-30 06:40 | disposition home or self-care (01) ==
LOC: ED 04:26
DX: R51.9 Headache, unspecified (principal); R11.0 Nausea; Z79.899 Other long term (current) drug therapy